=== PATIENT | female | born 1990 ===

== ENCOUNTER 2021-10-20 10:53 | Day surgery (SDC) | payer OTHER | END 2021-10-20 18:00 | disposition home or self-care (01) | LOC: CIR.AMB 10:53 | PROVIDERS: ATTEND Obstetrics & Gynecology | DX: Z30.432 Encounter for removal of intrauterine contraceptive device (principal); I10 Essential (primary) hypertension; Z20.822 Contact with and (suspected) exposure to COVID-19 ==